=== PATIENT | female | born 1950 | race Caucasian/White ===

== ENCOUNTER 2016-10-13 23:50 | Observation (INO) | payer BC ==
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
[2016-10-13 23:03] LABS: BASOPHILS 0.2 %; BASOPHILS ABSOLUTE 0.02 10/3/uL (0.0-0.16); EOSINOPHILS 2.8 %; EOSINOPHILS ABSOLUTE 0.27 10/3/uL (0.0-0.53); HEMATOCRIT 41.9 % (36.0-48.0); HEMOGLOBIN 14.9 g/dL (12.0-16.0); IMMATURE GRANULOCYTES 0.2 %; IMMATURE GRANULOCYTES ABSOLUTE 0.02 10/3/uL (0.0-0.11); LYMPHOCYTES 23.6 %; LYMPHOCYTES ABSOLUTE 2.29 10/3/uL (0.67-4.30); MANUAL DIFF NO %; MEAN CORPUS HGB CONC 35.6 g/dL (32.0-36.0); MEAN CORPUSCULAR HEMOGLOB 30.2 pg (26.0-34.0); MEAN CORPUSCULAR VOLUME 84.8 fL (80-100); MEAN PLATELET VOLUME 9.3 fL (9.2-13.0); MONOCYTES 9.4 %; MONOCYTES ABSOLUTE 0.91 10/3/uL (0.21-1.20); NEUTROPHILS 63.8 %; NEUTROPHILS ABSOLUTE 6.18 10/3/uL (2.02-8.40); PLATELET COUNT 231 10/3/uL (150-400); RBC DISTRIBUTION WIDTH 13.1 % (12.0-16.0); RED CELL COUNT 4.94 10/6/uL (4.0-5.6); WHITE BLOOD CELLS 9.7 10/3/uL (4.5-10.5)
[2016-10-13 23:10] LABS: PROTIME (NOT ORD) 13.5 SEC (12.0-14.5)
[2016-10-13 23:11] LABS: PARTIAL THROMBO TIME 26.3 SEC (22.5-37.2)
[2016-10-13 23:20] LABS: BUN (BLOOD UREA NITROGEN) 8 MG/DL (6-23); CALCIUM, SERUM 8.9 MG/DL (8.5-10.4); CHEST PAIN PROFILE TAT 0 Hrs 21 Mins; CHLORIDE, SERUM 103 MMOL/L (96-112); CO2 (CARBON DIOXIDE) 25 MMOL/L (24-34); CREATININE 0.74 MG/DL (0.55-1.02); GFR AFRICAN AMERICAN 100 ML/MIN (>=60); GFR NON AFRICAN AMERICAN 86 ML/MIN (>=60); GLUCOSE, SERUM 260 MG/DL (60-99); POTASSIUM, SERUM 4.2 MMOL/L (3.5-5.3); SODIUM, SERUM 139 MMOL/L (135-148); TROPONIN I <0.02 NG/ML (<0.05)
[2016-10-13 23:49] LABS: D-DIMER QUANTITATIVE < 0.27 ug/mLFEU (< 0.50)
[~2016-10-13 23:50] MED LIST: AMB10 PO; ASAB PO; AZO STANDARD PO; COREG12 PO; ESTROG PO; FISH OIL1200 MG PO; GLUCPH8 PO; LIPITOR10 PO; LYSINE1000 MG OR; METHYL PO; MULTIPLE VIT PO; PROBIOTIC PO; VITAMIN B-121000 MC1 SL; VITAMIN D1000 UNI1 PO; VITC500 PO
[2016-10-13 23:52] LABS: ALBUMIN 3.7 G/DL (3.5-5.0); ALKALINE PHOSPHATASE 74 U/L (45-117); DIRECT BILIRUBIN 0.1 MG/DL (0.0-0.4); INDIRECT BILIRUBIN(NOT ORDER) 0.3 MG/DL (0.1-0.9); SGOT(AST) 12 U/L (5-40); SGPT(ALT) 26 U/L (5-65); TOTAL BILIRUBIN 0.4 MG/DL (0-1.2); TOTAL PROTEIN 7.1 G/DL (6.0-8.5)
[2016-10-14] MEDS ORDERED: LIPITOR10 PO (00:55)
[2016-10-14] MEDS ORDERED: AMARYL4 PO (00:55)
[2016-10-14] MEDS ORDERED: COREG12 PO (00:56)
[2016-10-14] MEDS ORDERED: ESTRATEST PO (00:58)
[2016-10-14] MEDS ORDERED: TRULICITY1.5 MG/0.5 SC (00:58)
[2016-10-14] MEDS ORDERED: AMB5 PO (00:59)
[2016-10-14] MEDS ORDERED: GLUCPH8 PO (00:59)
[2016-10-14] MEDS ORDERED: ASAB PO (01:00)
[2016-10-14] MEDS ORDERED: [UNRECOGNIZED DRUG - OTHER] PO (01:02)
[2016-10-14] MEDS ORDERED: BIOTIN5 MG PO (01:02)
[2016-10-14] MEDS ORDERED: VITC500 PO (01:02)
[2016-10-14] MEDS ORDERED: CYANO1000T PO (01:03)
[2016-10-14] MEDS ORDERED: VITE PO (01:03)
[2016-10-14] MEDS ORDERED: PROBIOTIC PO (01:03)
[2016-10-14] MEDS ORDERED: FISH OIL1200 MG PO (01:03)
[2016-10-14] MEDS ORDERED: VITAMIN D31000 UNIT PO (01:03)
[2016-10-14] MEDS ORDERED: OCEAN NAS (01:05)
[2016-10-14] MEDS ORDERED: MINOCIN50 PO (01:09)
[2016-10-14] MEDS ORDERED: ZANTAC150 MG PO (13:59)
== END 2016-10-14 14:34 | disposition home or self-care (01) ==
LOC: ER 23:50 → CDU1 23:59 → CDU2 10-14 03:03
PROVIDERS: Specialist
DX: R07.9 Chest pain, unspecified (principal); I10 Essential (primary) hypertension; E11.9 Type 2 diabetes mellitus without complications; Z79.82 Long term (current) use of aspirin; Z79.899 Other long term (current) drug therapy
CPT/HCPCS: 71020; 78452; 80048; 80076; 82962; 83735; 84484; 85025; 85379; 85610; 85730; 93005; 93017; 96374; 96376; 99285; A9270-GY; A9502; G0378